=== PATIENT | male | born 1985 | race Caucasian/White ===

== ENCOUNTER 2017-11-21 09:45 | Emergency (ER) | payer SELFPAY ==
[2017-11-21 09:50] VITALS: BP 144/91; PULSE 91; TEMP 97.8; BMI 33.9
--- NOTE | 2017-11-21 10:33 | PDOC ---
History of Present Illness - General Chief Complaint: Lightheaded Stated Complaint: DIZZINESS Time Seen by Provider: 11/21/17 10:05 History Source: Patient Exam Limitations: No Limitations - History of Present Illness Initial Comments: 11/21/17 10:28 Patient is a [31-year-old male history of high cholesterol, untreated, had surgery for amblyopia. Patient presents with ringing in the right ear for 2 days , also complaining of vertigo, unsteady gait and feels that when he stands up the room is spinning and feels like his gout loses balance. Has recently had cluster headaches on the right side no CT was performed. Does have nausea with no vomiting. Denies trauma. Allergies: No known allergies Medications: [None] Family History: Non-contributory Social History: Denies smoking, alcohol use, or IVDU Vital signs on arrival are [notable for pulse of 91.] Review of Systems GENERAL/CONSTITUTIONAL: [No fever or chills. No weakness. No weight change.] HEAD, EYES, EARS, NOSE AND THROAT: [No change in vision. Right ear tinnitus. No sore throat. ] CARDIOVASCULAR: [No chest pain or shortness of breath.] RESPIRATORY: [No cough, wheezing, or hemoptysis.] GASTROINTESTINAL: [No nausea, vomiting, diarrhea or constipation. No rectal bleeding.] GENITOURINARY: [No dysuria, frequency, or change in urination.] MUSCULOSKELETAL: [No joint or muscle swelling or pain. No neck or back pain.] SKIN AND BREASTS: [No rash or easy bruising.] NEUROLOGIC: [Headache, vertigo, no LOC or no loss of sensation] PSYCHIATRIC: [No depression or anxiety.] ENDOCRINE: [No increased thirst. No abnormal weight change.] HEMATOLOGIC/LYMPHATIC: [No anemia, easy bleeding, or history of blood clots.] ALLERGIC/IMMUNOLOGIC: [No hives or skin allergy. No latex allergy.] Physical Exam: GENERAL: [The patient is awake, alert, and fully oriented, in no acute distress. ] HEAD: [Normal with no signs of trauma.] EYES: [Pupils equal, round and reactive to light, extraocular movements intact, sclera anicteric, conjunctiva clear.] ENT: [Erythema noted to right canal with no edema, good light reflex on the right, normal on the left. Nares patent, oropharynx clear without exudates. Moist mucous membranes. No uvula deviation] NECK: [Normal range of motion, supple without lymphadenopathy, JVD, or masses.] LUNGS: [Breath sounds equal, clear to auscultation bilaterally. No wheezes, and no crackles.] HEART: [Regular rate and rhythm, normal S1 and S2 without murmur, rub or gallop. ] ABDOMEN: [Soft, nontender, normoactive bowel sounds. No guarding, no rebound. No masses. No bruising or abrasions] RECTAL : [Guaiac negative, normal rectal tone.] MUSCULOSKELETAL: [Normal range of motion, no edema. No clubbing or cyanosis. No cords, erythema, or tenderness. No CVA Tenderness with fist.] NEUROLOGICAL: [Cranial nerves II through XII grossly intact. Normal speech, normal gait.] SKIN: [Warm, Dry, normal turgor, no rashes or lesions noted.] 11/21/17 10:32 Past History - Past Medical History Allergies/Adverse Reactions: Allergies Allergy/AdvReac Type Severity Reaction Status Date / Time No Known Allergies Allergy Verified 11/21/17 09:46 Home Medications: Ambulatory Orders Amox-Tr/K Cl [Augmentin - 875Mg Tablet] 1 tab PO BID #14 tablet 11/21/17 COPD: No DVT: No Hypercholesterolemia: Yes - Immunization History Immunization Up to Date: No - Suicide/Smoking/Psychosocial Hx Smoking History: Former smoker Have you smoked in the past 12 months: No Number of Cigarettes Smoked Daily: 2 If you are a former smoker, when did you quit?: 2D Information on smoking cessation initiated: No 'Breaking Loose' booklet given: 10/04/13 Hx Alcohol Use: No Drug/Substance Use Hx: No Substance Use Type: None *Physical Exam - Vital Signs Last Vital Signs Temp Pulse Resp BP Pulse Ox 97.8 F 91 H 15 144/91 98 11/21/17 09:46 11/21/17 09:46 11/21/17 09:46 11/21/17 09:46 11/21/17 09:46 ED Treatment Course - RADIOLOGY Radiology Studies Ordered: Category Date Time Status HEAD CT WITHOUT CONTRAST [CT] Stat CT Scan 11/21/17 10:24 Ordered Medical Decision Making - Medical Decision Making 11/21/17 10:33 A/P: Patient with vertigo, ringing to right ear and right-sided headache. Will send for CT scan there is erythema noted to right canal, patient with an otitis , sent to CT scan rule out intracranial pathology. CT scan of the head is negative for acute cranial pathology will DC patient on Augmentin. Follow-up with ENT if tenderness does not resolve. I discussed the physical exam findings, ancillary test results and final diagnoses with the patient. I answered all of the patient's questions. The patient was satisfied with the care received and felt comfortable with the discharge plan and treatment plan. The patient will call to arrange follow-up and will return to the Emergency Department with any new, persistent or worsening symptoms. *DC/Admit/Observation/Transfer Diagnosis at time of Disposition: Dizziness, Tinnitus - Discharge Dispostion Disposition: HOME Condition at time of disposition: Stable Admit: No - Prescriptions Prescriptions: Amox-Tr/K Cl [Augmentin - 875Mg Tablet] 1 tab PO BID #14 tablet - Referrals Referrals: Faheem Alexander MD [Primary Care Provider] - Kobe Barba MD [Staff Physician] - (ENT) - Patient Instructions Printed Discharge Instructions: Tinnitus (Alternative Therapy) Additional Instructions: Please take antibiotics as prescribed, recommend follow-up with ear nose and throat doctor for evaluation Head CAT scan is normal. - Post Discharge Activity Forms/Work/School Notes: Back to Work
== END 2017-11-21 11:19 | disposition home or self-care (01) ==
LOC: JERFT 09:45
DX: H93.11 Tinnitus, right ear (principal); R42 Dizziness and giddiness
CPT/HCPCS: 70450-TC; 99281-25

== ENCOUNTER 2020-05-26 18:15 | Emergency (ER) | payer SELFPAY ==
[2020-05-26 18:50] VITALS: BP 154/95; PULSE 97; TEMP 99.7; BMI 40.3
--- NOTE | 2020-05-26 18:51 | PDOC ---
Rapid Medical Evaluation Chief Complaint: Back Pain Time Seen by Provider: 05/26/20 18:47 Medical Evaluation: Allergies Allergy/AdvReac Type Severity Reaction Status Date / Time No Known Allergies Allergy Verified 11/21/17 09:46 05/26/20 18:49 CC: pain to his lower back , denies injury Exam: noted abscess to fold, + fluctulance to center Plan: FT, I & D Discharge Disposition - Diagnosis Pilonidal abscess - Discharge Dispostion Condition at time of disposition: Stable - Referrals - Patient Instructions - Post Discharge Activity
[2020-05-26] MEDS ORDERED: LIDOCAINE HCL 1%, 10 MG/ML (50 mL VIAL) SQ ONE (19:01)
[2020-05-26] MEDS ORDERED: LIDOCAINE HCL 1%, 10 MG/ML (20ML VIAL) ONE (19:03)
--- NOTE | 2020-05-26 19:29 | PDOC ---
History of Present Illness - General Chief Complaint: Abscess Boil Stated Complaint: L BACK PAIN Time Seen by Provider: 05/26/20 18:47 - History of Present Illness Initial Comments: 05/26/20 19:25 34-year-old male without comorbidities presents for evaluation of a painful area on his buttocks x2 days no systemic symptoms. History of pilonidal abscesses Past History - Medical History Allergies/Adverse Reactions: Allergies Allergy/AdvReac Type Severity Reaction Status Date / Time No Known Allergies Allergy Verified 11/21/17 09:46 Home Medications: Ambulatory Orders Amox-Tr/K Cl [Augmentin - 875Mg Tablet] 1 tab PO BID #14 tablet 11/21/17 Cephalexin [Keflex] 500 mg PO QID #40 capsule 05/26/20 Ibuprofen [Motrin -] 600 mg PO TID #30 tablet 05/26/20 Sulfamethoxazole/Trimethoprim [Bactrim Ds -] 1 tab PO BID #14 tablet 05/26/20 COPD: No DVT: No Hypercholesterolemia: Yes - Immunization History Immunization Up to Date: No - Psycho-Social/Smoking History Smoking History: Current every day smoker Have you smoked in the past 12 months: Yes Number of Cigarettes Smoked Daily: 10 If you are a former smoker, when did you quit?: 2D Information on smoking cessation initiated: No 'Breaking Loose' booklet given: 10/04/13 - Substance Abuse Hx (Audit-C & DAST Scrn) How often the patient has a drink containing alcohol: Never Score: In Men: 4 or > Positive; In Women: 3 or > Positive: 0 Screen Result (Pos requires Nsg. Audit-10AR): Negative In the last yr the pt used illegal drug/Rx for NonMed reason: No Score: Yes response is considered Positive: 0 Screen Result (Positive result requires Nsg. DAST-10): Negative Review of Systems - Review of Systems Constitutional: No: Fever *Physical Exam - Vital Signs Last Vital Signs Temp Pulse Resp BP Pulse Ox 99.7 F H 97 H 18 154/95 98 05/26/20 18:47 05/26/20 18:47 05/26/20 18:47 05/26/20 18:47 05/26/20 18:47 - Physical Exam 05/26/20 19:25 There is a tender erythemic indurated area at the proximal gluteal crease with fluctuance extending bilaterally around the gluteal crease. Medical Decision Making - Medical Decision Making 05/26/20 19:26 Aseptically prepped,The area was anesthetized with 20 cc of 1% lidocaine without epinephrine. Purulent material was expressed sent for culture. Deloculated and packed with 1 inch iodoform dry sterile dressing was placed. This was tolerated well. Follow-up in 2 days. At that point switch to wet-to-dry dressing changes or possibly repacked the wound. Bactrim and Keflex and Motrin I have reviewed the pathophysiology with the patient. They are in agreement with the treatment plan all questions were answered to their satisfaction. Understanding for follow-up without fail was also conveyed to the patient. Again they are in agreement. Discharge - Discharge Information Problems reviewed: Yes Clinical Impression/Diagnosis: Pilonidal abscess Condition: Stable Disposition: HOME - Admission No - Additional Discharge Information Prescriptions: Sulfamethoxazole/Trimethoprim [Bactrim Ds -] 1 tab PO BID #14 tablet Cephalexin [Keflex] 500 mg PO QID #40 capsule Ibuprofen [Motrin -] 600 mg PO TID #30 tablet - Follow up/Referral Referrals: Marty Barbosa MD [Staff Physician] - - Patient Discharge Instructions Additional Instructions: Please keep the dressing intact clean and dry for the next 48 hours. Return to the emergency room in 48 hours for packing removal. Please take the antibiotics as directed you may take the Motrin as directed as well. As needed for pain. Without fail follow-up with general surgery in 1 to 2 days for further evalu ation and treatment options and again return to the emergency room should in 48 hours for packing removal and wound check. Sooner if problems develop. - Post Discharge Activity
== END 2020-05-26 20:36 | disposition home or self-care (01) ==
LOC: JER 18:15
DX: L05.01 Pilonidal cyst with abscess (principal)
CPT/HCPCS: 87070; 87076; 87205; 99284-25

== ENCOUNTER 2020-05-28 17:46 | Emergency (ER) | payer SELFPAY ==
[2020-05-28 18:04] VITALS: BP 123/78; PULSE 92; TEMP 97.2; BMI 35.5
--- NOTE | 2020-05-28 18:46 | PDOC ---
History of Present Illness - General Chief Complaint: Wound Stated Complaint: WOUND Time Seen by Provider: 05/28/20 18:06 History Source: Patient Exam Limitations: No Limitations - History of Present Illness Initial Comments: 05/28/20 18:40 34-year-old male presents to the ED for wound check. Patient states had an I&D done to a pilonidal cyst 2 days ago with packing. Patient states no worsening pain drainage, redness, or fever. Patient states continue to take antibiotics Is this a multiple visit Asthma Patient?: No Timing/Duration: changing over time Severity: mild Associated Symptoms: reports: denies symptoms Past History - Travel History Traveled outside of the country in the last 30 days: No Close contact w/someone who was outside of country & ill: No - Medical History Allergies/Adverse Reactions: Allergies Allergy/AdvReac Type Severity Reaction Status Date / Time No Known Allergies Allergy Verified 05/28/20 18:00 Home Medications: Ambulatory Orders Amox-Tr/K Cl [Augmentin - 875Mg Tablet] 1 tab PO BID #14 tablet 11/21/17 Cephalexin [Keflex] 500 mg PO QID #40 capsule 05/26/20 Ibuprofen [Motrin -] 600 mg PO TID #30 tablet 05/26/20 Sulfamethoxazole/Trimethoprim [Bactrim Ds -] 1 tab PO BID #14 tablet 05/26/20 Sulfamethoxazole/Trimethoprim [Bactrim Ds -] 1 tab PO BID #14 tablet 05/26/20 COPD: No DVT: No Hypercholesterolemia: Yes - Immunization History Immunization Up to Date: No - Psycho-Social/Smoking History Patient Lives Alone: No Lives with/in: spouse/SO Smoking History: Never smoked Have you smoked in the past 12 months: Yes Number of Cigarettes Smoked Daily: 10 If you are a former smoker, when did you quit?: 2D Information on smoking cessation initiated: No 'Breaking Loose' booklet given: 10/04/13 - Substance Abuse Hx (Audit-C & DAST Scrn) How often the patient has a drink containing alcohol: Never Score: In Men: 4 or > Positive; In Women: 3 or > Positive: 0 Screen Result (Pos requires Nsg. Audit-10AR): Negative In the last yr the pt used illegal drug/Rx for NonMed reason: No Score: Yes response is considered Positive: 0 Screen Result (Positive result requires Nsg. DAST-10): Negative Review of Systems - Review of Systems Able to Perform ROS?: No Is the patient limited Slovenian proficient: No Constitutional: No: Symptoms Reported Integumentary: Yes: Other Neurological: No: Symptoms reported Endocrine: No: Symptoms Reported *Physical Exam - Vital Signs Last Vital Signs Temp Pulse Resp BP Pulse Ox 97.2 F L 92 H 17 123/78 99 05/28/20 18:00 05/28/20 18:00 05/28/20 18:00 05/28/20 18:00 05/28/20 18:00 - Physical Exam General Appearance: Yes: Nourished, Appropriately Dressed. No: Apparent Distress Integumentary: positive: Other (Noted mild erythema surrounding the pilonidal cyst with no palpable fluctuance foul odor or excessive drainage.) Neurologic: positive: Motor Strength 5/5 (Ambulatory) Medical Decision Making - Medical Decision Making 05/28/20 18:45 Chief complaint: Here for wound check. Exam: Remove packing without difficulty. Minimal drainage noted on packing. Area redressed with abdominal bandage along with Telfa. Patient given instructions to continue with antibiotic along with allowing warm water to hit area daily utilizing baby shampoo and water to cleanse area Discharge - Discharge Information Problems reviewed: Yes Clinical Impression/Diagnosis: Encounter for wound re-check Condition: Improved Disposition: HOME - Admission No - Follow up/Referral Referrals: Faheem Alexander MD [Primary Care Provider] - - Patient Discharge Instructions Patient Printed Discharge Instructions: DI for Wound Infection Additional Instructions: Continue with antibiotic along with allowing warm water to hit area daily, utilizing baby shampoo and water to cleanse area, then may switch to 1/2 iodone and water to cleanse in the next 3 days - Post Discharge Activity
== END 2020-05-28 18:52 | disposition home or self-care (01) ==
LOC: JERFT 17:46
DX: Z48.00 Encounter for change or removal of nonsurgical wound dressing (principal)
CPT/HCPCS: 99282-25